=== PATIENT | female | born 1990 | race Caucasian/White ===

== ENCOUNTER 2021-12-16 10:00 | Emergency (ER) | payer OTHER ==
[2021-12-16] MEDS ORDERED: traMADol 50 MG Tab PO ONE (10:13)
== END 2021-12-16 11:25 | disposition home or self-care (01) ==
LOC: MW.ED 10:00
DX: S89.91XA Unspecified injury of right lower leg, initial encounter (principal); X50.1XXA Overexertion from prolonged static or awkward postures, initial encounter; Y99.0 Civilian activity done for income or pay
CPT/HCPCS: 73562; 99283; A9270

== ENCOUNTER 2022-07-14 23:21 | Emergency (ER) | payer SELFPAY ==
[2022-07-15 00:22] LABS: CORONAVIRUS COVID-19 NAA NEGATIVE (NEGATIVE); INFLUENZA A NAA NEGATIVE (NEGATIVE); INFLUENZA B NAA NEGATIVE (NEGATIVE); RESPIRATORY SYNCYTIAL VIR NAA NEGATIVE (NEGATIVE)
[2022-07-15] MEDS ORDERED: Dexamethasone 10 MG/ML SDV PO ONE (00:29)
[2022-07-15] MEDS ORDERED: Ondansetron 4 MG Tab PO ONE (01:30)
[2022-07-15] MEDS ORDERED: Codeine/guaiFENesin 10-100 MG/5 ML Syrup 5 ML Cup PO SCH (01:30)
== END 2022-07-15 03:17 | disposition home or self-care (01) ==
LOC: MW.ED 23:21
DX: J40 Bronchitis, not specified as acute or chronic (principal); Z20.822 Contact with and (suspected) exposure to COVID-19
CPT/HCPCS: 0241U; 71046; 99285; A9270; J8540

== ENCOUNTER 2022-07-29 11:26 | Observation (INO) | payer SELFPAY ==
[2022-07-29] MEDS ORDERED: Lactated Ringers 1,000 ML IV ONE (12:40)
[2022-07-29] MEDS ORDERED: diphenhydrAMINE 50 MG/ML SDV IVPUSH ONE (12:40)
[2022-07-29] MEDS ORDERED: Ondansetron 4 MG/2 ML SDV IVPUSH ONE (12:43)
[2022-07-29 13:55] LABS: CARBON DIOXIDE,CO2 24.8 mmol/L (21.0-32.0); POTASSIUM,K 3.5 mmol/L (3.5-5.1)
[2022-07-29 13:55] LABS: CORONAVIRUS COVID-19 NAA NEGATIVE (NEGATIVE); INFLUENZA A NAA NEGATIVE (NEGATIVE); INFLUENZA B NAA NEGATIVE (NEGATIVE); RESPIRATORY SYNCYTIAL VIR NAA NEGATIVE (NEGATIVE)
[2022-07-29] MEDS ORDERED: Meclizine 25 MG Tab PO ONE (15:40)
[2022-07-29] MEDS ORDERED: Diazepam 5 MG Tab PO ONE (17:07)
[2022-07-29] MEDS ORDERED: Albuterol/Ipratropium 3.0-0.5 MG/3 ML Neb Soln NEB PRN (18:15)
[2022-07-29] MEDS ORDERED: Polyethylene Glycol 3350 Powder 17 GM Packet PO PRN (18:15)
[2022-07-29] MEDS ORDERED: Acetaminophen 325 MG Tab PO PRN (18:15)
[2022-07-29] MEDS ORDERED: Ondansetron 4 MG/2 ML SDV IVPUSH PRN (18:17)
[2022-07-29] MEDS ORDERED: guaiFENesin/Dextromethorphan 100-10 MG/5 ML Soln 10 ML Cup PO PRN (18:18)
[2022-07-29] MEDS ORDERED: Benzonatate 100 MG Cap PO PRN (18:18)
[2022-07-29] MEDS: Meclizine 25 MG Tab PO PRN (22:07)
[2022-07-30] MEDS: Meclizine 25 MG Tab PO PRN ×2 (04:18→10:27)
[2022-07-30 08:05] LABS: CARBON DIOXIDE,CO2 25.3 mmol/L (21.0-32.0); POTASSIUM,K 3.8 mmol/L (3.5-5.1)
== END 2022-07-30 11:45 | disposition home or self-care (01) ==
LOC: MW.ED 11:26 → MW.MS 17:31
PROVIDERS: ADMIT Internal Medicine; ATTEND Internal Medicine
DX: R05.3 Chronic cough (principal); J40 Bronchitis, not specified as acute or chronic; R42 Dizziness and giddiness; F41.9 Anxiety disorder, unspecified; F32.A Depression, unspecified; Z79.899 Other long term (current) drug therapy; Z20.822 Contact with and (suspected) exposure to COVID-19; Z86.16 Personal history of COVID-19; Z87.891 Personal history of nicotine dependence
CPT/HCPCS: 0241U; 36415; 80053; 83735; 84703; 85025; 93005; 96361; 96374; 96375; 97161; 97530; 99284; A9270; G0378; J1200; J2405; J7120

== ENCOUNTER 2023-01-04 17:42 | Emergency (ER) | payer SELFPAY ==
[2023-01-04 18:08] LABS: APPEARANCE,URINE CLEAR; BILIRUBIN,URINE NEGATIVE (NEGATIVE); COLOR,URINE YELLOW; GLUCOSE,URINE NEGATIVE (NEGATIVE); KETONES,URINE 40 mg/dL (NEGATIVE); LEUKOCYTE ESTERASE,URINE NEGATIVE (NEGATIVE); NITRITE,URINE NEGATIVE (NEGATIVE); OCCULT BLOOD,URINE NEGATIVE (NEGATIVE); PH,URINE 5.5 (5.0-8.0); PROTEIN,URINE NEGATIVE (NEGATIVE); UROBILINOGEN,URINE 0.2 EU/dL (<2.0)
[2023-01-04] MEDS ORDERED: Water For Injection, Sterile 20 ML SDV INJECT ONE (18:12)
[2023-01-04] MEDS ORDERED: Ziprasidone Mesylate 20 MG Vial IM ONE (18:12)
[2023-01-04 18:21] LABS: AMPHETAMINES SCREEN, URINE NEGATIVE (CUTOFF=500); BARBITURATE SCREEN,URINE NEGATIVE (CUTOFF=200); BENZODIAZEPINES SCREEN,URINE NEGATIVE (CUTOFF=150); BUPRENORPHINE SCREEN,URINE NEGATIVE (CUTOFF=10); METHADONE SCREEN, URINE NEGATIVE (CUTOFF=200); METHAMPHETAMINES SCREEN, URINE NEGATIVE (CUTOFF=500); OXYCODONE SCREEN,URINE NEGATIVE (CUT0FF=100); PCP SCREEN,URINE NEGATIVE (CUTOFF=25); PROPOXYPHENE SCREEN,URINE NEGATIVE (CUTOFF=300); THC SCREEN,URINE 20 NG/ML PRESUMPTIVE POSITIVE (CUTOFF=50)
== END 2023-01-04 19:31 | disposition left against medical advice (07) ==
LOC: MW.ED 17:42
DX: F32.9 Major depressive disorder, single episode, unspecified (principal); F17.210 Nicotine dependence, cigarettes, uncomplicated; Z53.1 Procedure and treatment not carried out because of patient's decision for reasons of belief and group pressure; Z86.16 Personal history of COVID-19; Z91.040 Latex allergy status
CPT/HCPCS: 80305; 81003; 81025; 96372; 99284; J3486; 99283; J3490

== ENCOUNTER 2023-01-08 13:56 | Emergency (ER) | payer SELFPAY ==
[2023-01-08 14:08] LABS: BASOPHILS PERCENT AUTO 0.3 % (0.0-1.5); EOSINOPHILS ABSOLUTE AUTO 0.2 K/uL (0.0-0.7); EOSINOPHILS PERCENT AUTO 1.4 % (0.0-7.0); HEMATOCRIT 36.5 % (36.0-46.0); HEMOGLOBIN 12.9 g/dL (12.0-16.0); LYMPHOCYTES ABSOLUTE AUTO 2.6 K/uL (0.6-2.4); LYMPHOCYTES PERCENT AUTO 24.9 % (16.0-40.0); MEAN CORPUSCULAR HEMOGLOBIN 30.7 pg (27.0-32.0); MEAN CORPUSCULAR HGB CONC 35.3 g/dL (31.0-37.0); MEAN CORPUSCULAR VOLUME 86.9 fL (80.0-98.0); MONOCYTES ABSOLUTE AUTO 0.9 K/uL (0.0-0.8); MONOCYTES PERCENT AUTO 8.2 % (0.0-15.0); NEUTROPHILS ABSOLUTE AUTO 6.8 K/uL (1.4-5.7); NEUTROPHILS PERCENT AUTO 65.2 % (48.0-80.0); NRBC ABSOLUTE 0 K/uL; PLATELET COUNT,PLT 308 K/uL (150-400); WHITE BLOOD CELL COUNT,WBC 10.36 K/uL (4.0-11.0)
[2023-01-08] MEDS ORDERED: Midazolam 5 MG/ML SDV IVPUSH ONE ×2 (14:17→16:42)
[2023-01-08 14:43] LABS: GLUCOSE,URINE NEGATIVE (NEGATIVE); KETONES,URINE NEGATIVE (NEGATIVE); LEUKOCYTE ESTERASE,URINE MODERATE (NEGATIVE); NITRITE,URINE NEGATIVE (NEGATIVE); OCCULT BLOOD,URINE LARGE (NEGATIVE); PH,URINE 5.5 (5.0-8.0); PROTEIN,URINE 100 mg/dL (NEGATIVE); UROBILINOGEN,URINE 0.2 EU/dL (<2.0)
[2023-01-08 14:47] LABS: APPEARANCE,URINE SLT CLOUDY; BILIRUBIN,URINE SMALL (NEGATIVE); COLOR,URINE YELLOW
[2023-01-08 14:53] LABS: AMPHETAMINES SCREEN, URINE NEGATIVE (CUTOFF=500); BARBITURATE SCREEN,URINE NEGATIVE (CUTOFF=200); BENZODIAZEPINES SCREEN,URINE NEGATIVE (CUTOFF=150); BUPRENORPHINE SCREEN,URINE NEGATIVE (CUTOFF=10); METHADONE SCREEN, URINE NEGATIVE (CUTOFF=200); METHAMPHETAMINES SCREEN, URINE NEGATIVE (CUTOFF=500); OXYCODONE SCREEN,URINE NEGATIVE (CUT0FF=100); PCP SCREEN,URINE NEGATIVE (CUTOFF=25); PROPOXYPHENE SCREEN,URINE NEGATIVE (CUTOFF=300); THC SCREEN,URINE 20 NG/ML PRESUMPTIVE POSITIVE (CUTOFF=50)
[2023-01-08 15:16] LABS: BACTERIA,URINE 1+ (NEGATIVE); EPITHELIAL CELLS,URINE MODERATE (NONE-FEW)
[2023-01-08] MEDS ORDERED: cefTRIAXone 1 GM in Sodium Chloride 0.9% 50 ML IV ONE (15:18)
[2023-01-08 15:21] LABS: A/G RATIO 1.3 (0.9-1.6); ACETAMINOPHEN <2.0 ug/mL; ALANINE AMINOTRANSFERASE,ALT 41 IU/L (14-63); ALBUMIN 3.6 g/dL (3.4-5.0); ALKALINE PHOSPHATASE 102 U/L (46-116); ASPARTATE AMNIOTRANSFERASE,AST 21 IU/L (15-37); BILIRUBIN TOTAL 0.3 mg/dL (0.2-1.0); BLOOD UREA NITROGEN,BUN 6 mg/dL (7.0-18.0); CARBON DIOXIDE,CO2 26.3 mmol/L (21.0-32.0); CHLORIDE,CL 105 mmol/L (98-107); CREATININE 0.7 mg/dL (0.6-1.0); EST CRCL DRUG DOSING (CG) 110.01 mL/min; GLUCOSE RANDOM 81 mg/dL (74-106); MAGNESIUM 2.2 mg/dL (1.8-2.4); POTASSIUM,K 2.8 mmol/L (3.5-5.1); PROTEIN TOTAL,TP 6.4 g/dL (6.4-8.2); SALICYLATE 0.8 mg/dL (0.0-20.0); SODIUM,NA 142 mmol/L (136-145)
[2023-01-08 15:22] LABS: ESTIMATED GFR 119 mL/min (>60); ETHANOL BLOOD MEDICAL < 3.0 mg/dL
[2023-01-08] MEDS ORDERED: Potassium Chloride 10 MEQ in Premix Bag 1 BAG IV ONE ×2 (15:46→17:03)
[2023-01-08] MEDS ORDERED: Potassium Chloride 20 MEQ Tab.ER PO ONE (15:47)
[2023-01-08] MEDS ORDERED: Sodium Chloride 0.9% 100 ML IV ONE ×2 (16:00→17:15)
[2023-01-08] MEDS ORDERED: Water For Injection, Sterile 20 ML SDV INJECT ONE (16:13)
[2023-01-08] MEDS ORDERED: Ziprasidone Mesylate 20 MG Vial IM ONE (16:13)
[2023-01-08] MEDS ORDERED: LORazepam 2 MG/ML SDV IVPUSH ONE ×2 (17:24→18:19)
[2023-01-08] MEDS ORDERED: LORazepam 2 MG/ML SDV ONE (17:37)
[2023-01-08 20:15] LABS: CALCIUM 8.4 mg/dL (8.5-10.1); CARBON DIOXIDE,CO2 28.8 mmol/L (21.0-32.0); CREATININE 0.7 mg/dL (0.6-1.0); EST CRCL DRUG DOSING (CG) 110.01 mL/min; POTASSIUM,K 3.8 mmol/L (3.5-5.1)
[2023-01-08] MEDS ORDERED: risperiDONE 1 MG Tab PO SCH (21:00)
[2023-01-08] MEDS ORDERED: Benztropine 1 MG Tab PO SCH (21:00)
[2023-01-09] MEDS ORDERED: Haloperidol Lactate 5 MG/ML SDV IM ONE (00:03)
[2023-01-09] MEDS ORDERED: Ziprasidone HCl 20 MG Cap PO ONE (00:34)
[2023-01-09] MEDS ORDERED: Ziprasidone HCl 20 MG Cap PO SCH (21:00)
== END 2023-01-09 01:05 ==
LOC: MW.ED 13:56
DX: F31.9 Bipolar disorder, unspecified (principal); Z86.16 Personal history of COVID-19; Z20.822 Contact with and (suspected) exposure to COVID-19; Z91.040 Latex allergy status
CPT/HCPCS: 36415; 70450; 80048; 80053; 80143; 80179; 80305; 80307; 81001; 83735; 84703; 85025; 87086; 87635; 93005; 96365; 96366; 96367; 96372; 96375; 96376; 99291; 99292; A9270; J0696; J1630; J2060; J2250; J3480; J3486; J3490; 93010; U0002

== ENCOUNTER 2024-06-10 06:16 | Emergency (ER) | payer BC | END 2024-06-10 06:45 | disposition home or self-care (01) | LOC: MW.ED 06:16 | DX: J06.9 Acute upper respiratory infection, unspecified (principal); F31.9 Bipolar disorder, unspecified; Z91.040 Latex allergy status; Z79.899 Other long term (current) drug therapy; Z86.16 Personal history of COVID-19; Z75.8 Other problems related to medical facilities and other health care | CPT/HCPCS: 99283 ==

== ENCOUNTER 2024-07-20 00:48 | Emergency (ER) | payer OTHER ==
[2024-07-20] MEDS: Sodium Chloride 0.9% 1,000 ML IV ONE (01:32)
[2024-07-20 01:33] LABS: BASOPHILS ABSOLUTE AUTO 0.07 K/uL (0.00-0.20); BASOPHILS PERCENT AUTO 0.6 % (0.0-1.0); EOSINOPHILS ABSOLUTE AUTO 0.41 K/uL (0.00-0.45); EOSINOPHILS PERCENT AUTO 3.7 % (0.0-6.0); HEMATOCRIT 39.9 % (37.0-47.0); HEMOGLOBIN 14.1 g/dL (12.0-16.0); IMMATURE GRAN ABSOLUTE AUTO 0.06 K/uL (0.00-0.05); IMMATURE GRAN PERCENT AUTO 0.5 % (0.0-0.4); LYMPHOCYTES ABSOLUTE AUTO 3.53 K/uL (1.00-4.80); LYMPHOCYTES PERCENT AUTO 31.7 % (24.0-44.0); MEAN CORPUSCULAR HEMOGLOBIN 30.9 pg (28.0-32.0); MEAN CORPUSCULAR HGB CONC 35.3 g/dL (32.0-36.0); MEAN CORPUSCULAR VOLUME 87.3 fL (83.0-99.0); MEAN PLATELET VOLUME 9.2 fL (9.4-12.3); MONOCYTES ABSOLUTE AUTO 0.83 K/uL (0.00-0.80); MONOCYTES PERCENT AUTO 7.5 % (0.0-8.0); NEUTROPHILS ABSOLUTE AUTO 6.24 K/uL (1.80-7.70); PLATELET COUNT,PLT 380 K/uL (150-400); RED BLOOD CELL COUNT 4.57 M/uL (4.10-5.30); WHITE BLOOD CELL COUNT,WBC 11.14 K/uL (3.9-11.3)
[2024-07-20] MEDS: Ondansetron 4 MG/2 ML SDV IVPUSH ONE (01:33)
[2024-07-20] MEDS: Acetaminophen 500 MG Tab PO ONE (01:33)
[2024-07-20] MEDS: Ketorolac 30 MG/ML SDV IVPUSH ONE (01:33)
[2024-07-20 01:56] LABS: ALBUMIN 3.7 g/dL (3.4-5.0); BILIRUBIN TOTAL 0.4 mg/dL (0.2-1.0); CALCIUM 9.2 mg/dL (8.5-10.1); CARBON DIOXIDE,CO2 25.4 mmol/L (21.0-32.0); CREATININE 0.8 mg/dL (0.6-1.0); EST CRCL DRUG DOSING (CG) 94.51 mL/min; POTASSIUM,K 3.4 mmol/L (3.5-5.1); PROTEIN TOTAL,TP 7.5 g/dL (6.4-8.2)
== END 2024-07-20 03:24 | disposition home or self-care (01) ==
LOC: MW.ED 00:48
DX: B34.9 Viral infection, unspecified (principal); Z91.041 Radiographic dye allergy status; Z79.899 Other long term (current) drug therapy; Z86.16 Personal history of COVID-19
CPT/HCPCS: 36415; 71046; 80053; 84703; 85025; 87428; 96361; 96374; 96375; 99285; A9270; J1885; J2405; J7030

== ENCOUNTER 2024-12-08 17:16 | Emergency (ER) | payer OTHER ==
[2024-12-08] MEDS: Sodium Chloride 0.9% 1,000 ML IV ONE (18:36)
[2024-12-08] MEDS: Famotidine 20 MG/2 ML SDV IVPUSH ONE (18:38)
[2024-12-08] MEDS: diphenhydrAMINE 50 MG/ML SDV IVPUSH ONE (18:40)
[2024-12-08] MEDS: methylPREDNISolone Sodium Succinate 125 MG/2 ML SDV IVPUSH ONE (18:41)
[2024-12-08 18:42] LABS: BASOPHILS ABSOLUTE AUTO 0.05 K/uL (0.00-0.20); BASOPHILS PERCENT AUTO 0.5 % (0.0-1.0); EOSINOPHILS ABSOLUTE AUTO 0.26 K/uL (0.00-0.45); EOSINOPHILS PERCENT AUTO 2.7 % (0.0-6.0); HEMATOCRIT 40.2 % (37.0-47.0); HEMOGLOBIN 14.1 g/dL (12.0-16.0); IMMATURE GRAN ABSOLUTE AUTO 0.05 K/uL (0.00-0.05); IMMATURE GRAN PERCENT AUTO 0.5 % (0.0-0.4); LYMPHOCYTES ABSOLUTE AUTO 3.24 K/uL (1.00-4.80); LYMPHOCYTES PERCENT AUTO 33.1 % (24.0-44.0); MEAN CORPUSCULAR HGB CONC 35.1 g/dL (32.0-36.0); MEAN CORPUSCULAR VOLUME 88.4 fL (83.0-99.0); MEAN PLATELET VOLUME 9.3 fL (9.4-12.3); MONOCYTES ABSOLUTE AUTO 0.63 K/uL (0.00-0.80); MONOCYTES PERCENT AUTO 6.4 % (0.0-8.0); NEUTROPHILS ABSOLUTE AUTO 5.56 K/uL (1.80-7.70); NEUTROPHILS PERCENT AUTO 56.8 % (41.0-71.0); PLATELET COUNT,PLT 348 K/uL (150-400); RED BLOOD CELL COUNT 4.55 M/uL (4.10-5.30); WHITE BLOOD CELL COUNT,WBC 9.79 K/uL (3.9-11.3)
[2024-12-08] MEDS: Ondansetron 4 MG/2 ML SDV IVPUSH ONE (18:46)
[2024-12-08 19:09] LABS: A/G RATIO 1.2 (0.9-1.6); ALBUMIN 3.8 g/dL (3.4-5.0); BILIRUBIN TOTAL 0.2 mg/dL (0.2-1.0); CREATININE 0.9 mg/dL (0.6-1.0); EST CRCL DRUG DOSING (CG) 84.01 mL/min; POTASSIUM,K 4.2 mmol/L (3.5-5.1)
[2024-12-08 20:01] LABS: APPEARANCE,URINE CLEAR; BILIRUBIN,URINE NEGATIVE (NEGATIVE); COLOR,URINE YELLOW; GLUCOSE,URINE NEGATIVE (NEGATIVE); KETONES,URINE NEGATIVE (NEGATIVE); LEUKOCYTE ESTERASE,URINE NEGATIVE (NEGATIVE); NITRITE,URINE NEGATIVE (NEGATIVE); OCCULT BLOOD,URINE NEGATIVE (NEGATIVE); PROTEIN,URINE NEGATIVE (NEGATIVE); UROBILINOGEN,URINE 0.2 EU/dL (<2.0)
== END 2024-12-08 20:25 | disposition home or self-care (01) ==
LOC: MW.ED 17:16
DX: K52.9 Noninfective gastroenteritis and colitis, unspecified (principal); R21 Rash and other nonspecific skin eruption; T42.6X5A Adverse effect of other antiepileptic and sedative-hypnotic drugs, initial encounter; Z91.040 Latex allergy status; Z79.899 Other long term (current) drug therapy; Z86.16 Personal history of COVID-19
CPT/HCPCS: 36415; 80053; 81003; 84703; 85025; 96361; 96374; 96375; 99284; J1200; J2405; J2919; J7030; 99283